=== PATIENT | male | born 1970 | race Caucasian/White ===

== ENCOUNTER 2022-12-07 22:44 | Emergency (ER) | payer OTHER ==
[~2022-12-07] VITALS: Ht 188 cm; Wt 90.7 kg
[~2022-12-07 22:44] MED LIST: CEPH500 PO; DIPH25 PO; HYDACE5 PO; RXHYDACE PO; SULTRIDS PO; TOBR.3OPSO RIGHTEYE
== END 2022-12-08 01:07 | disposition home or self-care (01) ==
LOC: ER 22:44
DX: T15.92XA Foreign body on external eye, part unspecified, left eye, initial encounter (principal); X58.XXXA Exposure to other specified factors, initial encounter
CPT/HCPCS: 65205; 99283-25; A9270